=== PATIENT | male | born 2000 | race Asian ===

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

== ENCOUNTER 2018-01-23 02:17 | Emergency (ER) | payer OTHER ==
[2018-01-23] MEDS ORDERED: Ondansetron ODT TAB* 4 MG PO ONE (02:37)
--- NOTE | 2018-01-23 06:42 | ED ---
Jolene Franks Emily, scribed for Chris Pelaez MD on 01/23/18 at 0240 . Substance Abuse/Use - HPI Summary HPI Summary: This patient is a 17 year old M presenting to [facility] accompanied by friend with a chief complaint of ETOH intoxication that occurred [employer]. The patient rates the pain 0/10 in severity. Symptoms aggravated by nothing. Symptoms alleviated by nothing. Friend reports that to his knowledge, pt has not fallen or injured himself. - History Of Current Complaint Chief Complaint: EDSubstanceAbuse Stated Complaint: ETOH Time Seen by Provider: 01/23/18 02:29 Hx Obtained From: Patient Severity Initially: Mild Severity Currently: Mild Aggravating Factor(s): Nothing Alleviating Factor(s): Nothing - Allergies/Home Medications Allergies/Adverse Reactions: Allergies Allergy/AdvReac Type Severity Reaction Status Date / Time No Known Allergies Allergy Verified 01/23/18 02:22 Home Medications: Home Medications Unobtainable [Unobtainable] 01/23/18 [History Confirmed 01/23/18] PMH/Surg Hx/FS Hx/Imm Hx Previously Healthy: Yes Opthamlomology History: Denies: Hx Legally Blind EENT History: Denies: Hx Deafness Infectious Disease History: No Infectious Disease History: Denies: Traveled Outside the [place] in Last 30 Days - Family History Known Family History: Negative: Hypertension, Diabetes - Social History Occupation: Student Lives: Dormitory/Roommates Alcohol Use: Weekly Substance Use Type: Reports: None Smoking Status (MU): Never Smoked Tobacco Review of Systems Positive: Other - ETOH intoxication. Negative: Fever Negative: Bruising All Other Systems Reviewed And Are Negative: Yes Physical Exam - Summary Physical Exam Summary: Appearance: Well appearing, no pain distress, smells like alcohol Skin: warm, dry, reflects adequate perfusion Head/face: normal, no evidence of trauma to head or upper body Eyes: EOMI, CORINA, pupils are conjugate and injected ENT: normal Neck: supple, non-tender Respiratory: CTA, breath sounds present Cardiovascular: RRR, pulses symmetrical Abdomen: non-tender, soft Bowel Sounds: present Musculoskeletal: normal, strength/ROM intact Neuro: Sedate, not very responsive, responds to pain only Triage Information Reviewed: Yes Vital Signs On Initial Exam: Initial Vitals Temp Pulse Resp BP Pulse Ox 97.0 F 77 14 112/50 95 01/23/18 02:21 01/23/18 02:21 01/23/18 02:21 01/23/18 02:21 01/23/18 02:21 Vital Signs Reviewed: Yes Diagnostics - Vital Signs Vital Signs Temp Pulse Resp BP Pulse Ox 01/23/18 02:21 97.0 F 77 14 112/50 95 - Laboratory Lab Statement: Any lab studies that have been ordered have been reviewed, and results considered in the medical decision making process. Re-Evaluation - Re-Evaluation First Eval Re-Evaluation Time: 06:35 Change: Improved Comment: Discussed plan of care with pt Course/Dx - Course Course Of Treatment: Patient came in accompanied by his friend. There is no history for trauma. The patient sobered in the ER. He regained functional capacity as evidenced by clear speech, steady gait and inability to recent normally. His friend who has not been drinking is his safe ride home. - Diagnoses Provider Diagnoses: Alcohol intoxication Discharge - Sign-Out/Discharge Documenting (check all that apply): Discharge/Admit/Transfer - Discharge - Discharge Plan Condition: Good Disposition: HOME Patient Education Materials: Alcohol Intoxication (ED) [facility] - Additional Instructions: Never drink to excess. Drinking this much can be extremely dangerous. [facility]. Discussed with them your alcohol use and ways to curb it. - Billing Disposition and Condition Condition: GOOD Disposition: HOME The documentation as recorded by the Jolene downey Emily accurately reflects the service I personally performed and the decisions made by me, Chris Pelaez MD.
[2018-01-23 06:51] VITALS: BP 108/71
== END 2018-01-23 06:50 | disposition home or self-care (01) ==
LOC: ED 02:17
DX: F10.129 Alcohol abuse with intoxication, unspecified (principal)
CPT/HCPCS: 99282; A9270-GY

== ENCOUNTER 2019-01-23 20:21 | Emergency (ER) | payer OTHER ==
[2019-01-23 20:47] VITALS: BP 159/88
--- NOTE | 2019-01-23 21:00 | ED ---
Abdominal Pain/Male - HPI Summary HPI Summary: Mr. Cuevas comes in complaining of abdominal pain since 1700 hrs. yesterday. Since that time it's gotten more sharp but is in the same location which is periumbilically. He had mild nausea at first was able to eat at 1830 yesterday without aggravating the pain. His nausea gradually got worse although he has not vomited yet. He has had 4 loose bowel movements today. This is not helped or hurt his pain. No lifting aggravating his pain is that he feels worse when lying down. - History of Current Complaint Chief Complaint: UCAbdominalPain Stated Complaint: ABD PAIN Time Seen by Provider: 01/23/19 20:37 Hx Obtained From: Patient Onset/Duration: Gradual Onset Timing: Constant Severity Initially: Moderate Severity Currently: Moderate Pain Intensity: 6 Location: Diffuse Radiates: No Character: Sharp Aggravating Factor(s): Nothing, Other: - possibly lying down Alleviating Factor(s): Nothing Associated Signs And Symptoms: Positive: Nausea, Diarrhea - loose stools X 4 - Allergies/Home Medications Allergies/Adverse Reactions: Allergies Allergy/AdvReac Type Severity Reaction Status Date / Time No Known Allergies Allergy Verified 01/23/19 20:48 Home Medications: Home Medications Bismuth Subsalicylate [Pepto-Bismol] 262 mg PO Q8HR PRN 01/23/19 [History Confirmed 01/23/19] PMH/Surg Hx/FS Hx/Imm Hx Previously Healthy: Yes Sensory History: Denies: Hx Legally Blind, Hx Deafness Opthamlomology History: Denies: Hx Legally Blind Infectious Disease History: No Infectious Disease History: Reports: Traveled Outside the [place] in Last 30 Days - [place] - - Family History Known Family History: Negative: Hypertension, Diabetes - Social History Alcohol Use: Weekly Substance Use Type: Reports: None Smoking Status (MU): Never Smoked Tobacco Review of Systems Constitutional: Negative Respiratory: Negative Positive: Abdominal Pain, Diarrhea, Nausea Genitourinary: Negative Musculoskeletal: Negative Skin: Negative Neurological: Negative All Other Systems Reviewed And Are Negative: Yes Physical Exam - Summary Physical Exam Summary: He is nontoxic in appearance with stable vital signs. Triage Information Reviewed: Yes Vital Signs On Initial Exam: Initial Vitals Temp Pulse Resp BP Pulse Ox 98.2 F 61 18 159/88 99 01/23/19 20:42 01/23/19 20:42 01/23/19 20:42 01/23/19 20:42 01/23/19 20:42 Vital Signs Reviewed: Yes Appearance: Positive: Pain Distress - Moderate to mild Skin: Positive: Warm ENT: Positive: Normal ENT inspection Respiratory/Lung Sounds: Positive: Clear to Auscultation Cardiovascular: Positive: Normal Abdomen Description: Positive: Guarding, Other: - Diffuse moderate tenderness without rebound Diagnostics - Vital Signs Vital Signs Temp Pulse Resp BP Pulse Ox 01/23/19 20:42 98.2 F 61 18 159/88 99 - Laboratory Lab Statement: Any lab studies that have been ordered have been reviewed, and results considered in the medical decision making process. Abdominal Pain Male Course/Dx - Course Course Of Treatment: Mr. Cuevas clearly had significant pain and tenderness here. This is not a situation that I'm capable of diagnosing in this circumstance and I recommended that he go to the emergency department now. He has a commercial front load driver with him and she is willing to take him over there and he is willing to go. He was stable for transport. - Diagnoses Provider Diagnoses: Abdominal pain Discharge - Sign-Out/Discharge Documenting (check all that apply): Patient Departure All imaging exams completed and their final reports reviewed: No Studies - Discharge Plan Condition: Stable Disposition: HOME-RECOMMEND TO ED Patient Education Materials: Acute Abdominal Pain (ED) Referrals: [facility] [Primary Care Provider] - - Billing Disposition and Condition Condition: STABLE Disposition: Home-Recommend to ED
== END 2019-01-23 20:57 | disposition home health service (06) ==
LOC: UCEAST 20:21
DX: R10.33 Periumbilical pain (principal); R11.0 Nausea; R19.7 Diarrhea, unspecified
CPT/HCPCS: 99212; G0463

== ENCOUNTER 2019-01-23 21:10 | Emergency (ER) | payer OTHER ==
[2019-01-23 21:41] LABS: ABS Basophils 0 10^3/ul (0-0.2); ABS Eosinophils 0.1 10^3/ul (0-0.6); ABS Monocytes 0.5 10^3/ul (0-0.8); ABS Neutrophils 8.1 10^3/ul (1.5-7.7); ABS Nucleated RBC 0 10^3/ul; Eosinophil % 0.9 %; Hematocrit 47 % (36-46); Hemoglobin 15.8 g/dL (14.0-18.0); Lymphocyte % 18.4 %; Mean Corpuscular HGB Conc 34 g/dL (31-36); Mean Corpuscular Hemoglobin 30 pg (27-31); Mean Corpuscular Volume 89 fL (80-94); Mean Platelet Volume 8.5 fL (7.4-10.4); Nucleated Red Blood Cells % 0; Platelet Count 174 10^3/uL (150-450); Red Blood Count 5.27 10^6 /uL (4.18-5.48); Red Cell Distribution Width 14 % (10.5-15); White Blood Count 10.6 10^3/uL (3.5-10.8)
[2019-01-23 21:58] LABS: ALT 16 U/L (7-52); AST 25 U/L (13-39); Albumin/Globulin Ratio 1.7 (1-3); Alkaline Phosphatase 56 U/L (34-104); Anion Gap 9 mmol/L (2-11); Blood Urea Nitrogen 20 mg/dL (6-24); C Reactive Protein < 1.00 mg/L (<8.01); CO2 Carbon Dioxide 27 mmol/L (22-32); Calcium 10.2 mg/dL (8.6-10.3); Chloride 100 mmol/L (101-111); EGFR African American 102.2 (>60); EGFR Non-African American 84.5 (>60); Glucose 117 mg/dL (70-100); Potassium 4.6 mmol/L (3.5-5.0); Sodium 136 mmol/L (135-145)
[2019-01-23] MEDS ORDERED: NS 0.9% 1000 ML** 1,000 ML IV ONE (22:49)
[2019-01-23] MEDS ORDERED: Ondansetron INJ* 2 MG/ML VIAL IV ONE (22:53)
[2019-01-23] MEDS ORDERED: Morphine 10 MG/ML VIAL (1 ml) IV ONE (22:53)
[2019-01-23] MEDS ORDERED: Iohexol 300* (CONTRAST) 10 ML SDV IV ONE (23:07)
--- NOTE | 2019-01-23 23:19 | ED ---
Abdominal Pain/Male - HPI Summary HPI Summary: Patient sent from to ED for further evaluation of umbilical abdominal pain and nausea, and diarrhea. Abdominal pain described as progressive, constant with severe spikes up to 8/10 on the past 24 hours. Patient states he traveled abroad the [place], return 3 weeks ago and has been symptom-free until yesterday. Denies fever, cough, sore throat, CP, SOB, vomiting, change in urine, penile discharge or testicular pain. Medical history is none. Abdominal surgical history is none. Is not taking any medication. - History of Current Complaint Chief Complaint: EDAbdPain Stated Complaint: ABD PAIN PER PT Time Seen by Provider: 01/23/19 22:22 Hx Obtained From: Patient Onset/Duration: Sudden Onset, Lasting Hours Timing: Constant Severity Initially: Severe Severity Currently: Severe Pain Intensity: 7 Pain Scale Used: 0-10 Numeric Location: Umbilical Radiates: No Character: Sharp, Cramping, Colicy Aggravating Factor(s): Nothing Alleviating Factor(s): Nothing Associated Signs And Symptoms: Positive: Nausea, Diarrhea - Allergies/Home Medications Allergies/Adverse Reactions: Allergies Allergy/AdvReac Type Severity Reaction Status Date / Time No Known Allergies Allergy Verified 01/23/19 21:16 PMH/Surg Hx/FS Hx/Imm Hx Endocrine/Hematology History: Denies: Hx Anticoagulant Therapy Cardiovascular History: Denies: Hx Pacemaker/ICD History: Denies: Hx Dialysis Sensory History: Denies: Hx Legally Blind, Hx Deafness Opthamlomology History: Denies: Hx Legally Blind EENT History: Denies: Hx Deafness Neurological History: Denies: Hx Dementia Psychiatric History: Denies: Hx Autism Infectious Disease History: No Infectious Disease History: Reports: Traveled Outside the [place] in Last 30 Days - [facility] - Family History Known Family History: Negative: Hypertension, Diabetes - Social History Alcohol Use: Weekly Substance Use Type: Reports: None Smoking Status (MU): Never Smoked Tobacco Review of Systems Constitutional: Negative Eyes: Negative ENT: Negative Cardiovascular: Negative Respiratory: Negative Positive: Abdominal Pain, Diarrhea, Nausea Genitourinary: Negative Musculoskeletal: Negative Skin: Negative Neurological: Negative Psychological: Normal All Other Systems Reviewed And Are Negative: Yes Physical Exam - Summary Physical Exam Summary: Abdomen diffusely tender, but worse in lower abdomen. Lung sounds clear to auscultation bilaterally. RRR. Triage Information Reviewed: Yes Vital Signs On Initial Exam: Initial Vitals Temp Pulse Resp BP Pulse Ox 98.3 F 77 16 141/109 98 01/23/19 21:14 01/23/19 21:14 01/23/19 21:14 01/23/19 21:14 01/23/19 21:14 Vital Signs Reviewed: Yes Appearance: Positive: Well-Appearing Skin: Positive: Warm Head/Face: Positive: Normal Head/Face Inspection Eyes: Positive: Normal Neck: Positive: Supple Respiratory/Lung Sounds: Positive: Clear to Auscultation Cardiovascular: Positive: Normal Abdomen Description: Positive: Other: Musculoskeletal: Positive: Normal Neurological: Positive: Normal Psychiatric: Positive: Normal AVPU Assessment: Alert - [place] Coma Scale Best Eye Response: 4 - Spontaneous Best Motor Response: 6 - Obeys Commands Best Verbal Response: 5 - Oriented Coma Scale Total: 15 Diagnostics - Vital Signs Vital Signs Temp Pulse Resp BP Pulse Ox 01/23/19 23:11 58 140/85 97 01/23/19 23:10 18 01/23/19 21:14 98.3 F 77 16 141/109 98 - Laboratory Lab Results: Lab Results 01/23/19 01/23/19 Range/Units 21:34 21:34 WBC 10.6 (3.5-10.8) 10^3/uL RBC 5.27 (4.18-5.48) 10^6 /uL Hgb 15.8 (14.0-18.0) g/dL Hct 47 H (36-46) % MCV 89 (80-94) fL MCH 30 (27-31) pg MCHC 34 (31-36) g/dL RDW 14 (10.5-15) % Plt Count 174 (150-450) 10^3/uL MPV 8.5 (7.4-10.4) fL Neut % (Auto) 75.9 % Lymph % (Auto) 18.4 % Rankin % (Auto) 4.4 % Eos % (Auto) 0.9 % Baso % (Auto) 0.4 % Absolute Neuts (auto) 8.1 H (1.5-7.7) 10^3/ul Absolute Lymphs (auto) 2.0 (1.0-4.8) 10^3/ul Absolute Monos (auto) 0.5 (0-0.8) 10^3/ul Absolute Eos (auto) 0.1 (0-0.6) 10^3/ul Absolute Basos (auto) 0 (0-0.2) 10^3/ul Absolute Nucleated RBC 0 10^3/ul Nucleated RBC % 0 Sodium 136 (135-145) mmol/L Potassium 4.6 (3.5-5.0) mmol/L Chloride 100 L (101-111) mmol/L Carbon Dioxide 27 (22-32) mmol/L Anion Gap 9 (2-11) mmol/L BUN 20 (6-24) mg/dL Creatinine 1.11 (0.67-1.17) mg/dL Est GFR ( Amer) 102.2 (>60) Est GFR (Non-Af Amer) 84.5 (>60) BUN/Creatinine Ratio 18.0 (8-20) Glucose 117 H (70-100) mg/dL Calcium 10.2 (8.6-10.3) mg/dL Total Bilirubin 0.70 (0.2-1.0) mg/dL AST 25 (13-39) U/L ALT 16 (7-52) U/L Alkaline Phosphatase 56 (34-104) U/L C-Reactive Protein < 1.00 (<8.01) mg/L Total Protein 8.0 (6.4-8.9) g/dL Albumin 5.0 (3.2-5.2) g/dL Globulin 3.0 (2-4) g/dL Albumin/Globulin Ratio 1.7 (1-3) Lipase 13 (11.0-82.0) U/L Result Diagrams: 01/23/19 21:34 01/23/19 21:34 Lab Statement: Any lab studies that have been ordered have been reviewed, and results considered in the medical decision making process. Abdominal Pain Male Course/Dx - Course Course Of Treatment: Patient sent from to ED for further evaluation of umbilical abdominal pain and nausea, and diarrhea. Abdominal pain described as progressive, constant with severe spikes up to 8/10 on the past 24 hours. Patient states he traveled abroad the [place], return 3 weeks ago and has been symptom-free until yesterday. Denies fever, cough, sore throat, CP , SOB, vomiting, change in urine, penile discharge or testicular pain. Medical history is none. Abdominal surgical history is none. Is not taking any medication. physical exam:Abdomen diffusely tender, but worse in lower abdomen. Lung sounds clear to auscultation bilaterally. RRR. Vital signs within normal limits. Labs unremarkable. CT abdomen and pelvis positive for mild mucosal thickening of the distal stomach and small bowel consistent with gastroenteritis. Rx for Zofran, oxycodone for pain. - Diagnoses Provider Diagnoses: Nausea, Diarrhea Discharge - Sign-Out/Discharge Documenting (check all that apply): Patient Departure Patient Received Moderate/Deep Sedation with Procedure: No - Discharge Plan Condition: Stable Disposition: HOME Prescriptions: Ondansetron ODT TAB* [Zofran 4 MG Odt TAB*] 4 mg PO Q8H PRN 4 Days #14 tab.odt PRN Reason: Nausea Oxycodone HCl 5 mg PO Q8H 2 Days #6 tablet MDD 3 tabs Patient Education Materials: Gastroenteritis (ED) Referrals: No Primary Care Phys,[facility] [Primary Care Provider] - Additional Instructions: Drink plenty of fluids to maintain hydration. Alternate ibuprofen 600 mg with Tylenol 650 mg every 3 hours for pain. Take Zofran as directed for nausea. Follow-up with primary care. Return to the ED for any new or worsening symptoms. - Billing Disposition and Condition Condition: STABLE Disposition: Home
[2019-01-24] MEDS ORDERED: Ondansetron ODT TAB* 4 MG PO ONE (00:24)
[2019-01-24] MEDS ORDERED: oxyCODONE TAB* 5 MG TAB PO ONE (00:24)
[2019-01-24 01:41] VITALS: BP 128/69
== END 2019-01-24 01:30 | disposition home or self-care (01) ==
LOC: ED 21:10
DX: R11.0 Nausea (principal); R19.7 Diarrhea, unspecified; R10.33 Periumbilical pain
CPT/HCPCS: 36415; 74177; 80053; 83690; 85025; 86140; 96361; 96365; 96374; 96375; 99283; A9270-GY; J2270; J2405; Q9967